=== PATIENT | female | born 1970 | race Caucasian/White ===

== ENCOUNTER → 2020-09-28 | Outpatient (REF) | payer BC | LOC: M SFHCCLAY 07:37 | PROVIDERS: ATTEND Nurse Practitioner Family | DX: Z53.9 Procedure and treatment not carried out, unspecified reason (principal); F32.9 Major depressive disorder, single episode, unspecified ==

== ENCOUNTER → 2021-03-20 | Outpatient (REF) | payer BC ==
[2021-03-20 12:04] LABS: BASO # 0.1 10^3/uL (0.0-0.2); BASO % 0.9 % (0.0-1.0); EOS # 0.1 10^3/uL (0.0-0.5); EOS % 1.7 % (0.0-3.0); HEMATOCRIT 42.2 % (36.0-47.0); HEMOGLOBIN 14.2 g/dl (12.0-15.5); LYMPH # 2.7 10^3/uL (1.5-5.0); LYMPH % 34.8 % (24.0-44.0); MEAN CORPUSCULAR HEMOGLOBIN 33.3 pg (27.0-33.0); MEAN CORPUSCULAR HGB CONC 33.6 g/dl (32.0-36.5); MEAN CORPUSCULAR VOLUME 98.8 fl (80.0-96.0); MONO # 0.4 10^3/uL (0.0-0.8); MONO % 4.9 % (2.0-8.0); NEUTROPHILS # 4.4 10^3/uL (1.5-8.5); NEUTROPHILS % 57.2 % (36.0-66.0); PLATELET COUNT, AUTOMATED 261 10^3/uL (150-450); RED BLOOD COUNT 4.27 10^6/uL (4.00-5.40); WHITE BLOOD COUNT 7.7 10^3/uL (4.0-10.0)
[2021-03-20 12:30] LABS: ERYTHROCYTE SEDIMENTATION RATE 26 mm/hr (0-30)
[2021-03-20 12:33] LABS: ALBUMIN 3.8 GM/DL (3.2-5.2); ALT/SGPT 128 U/L (12-78); BILIRUBIN,TOTAL 0.6 MG/DL (0.2-1.0); BLOOD UREA NITROGEN 9 MG/DL (7-18); CALCIUM LEVEL 9.6 MG/DL (8.5-10.1); CARBON DIOXIDE LEVEL 29 MEQ/L (21-32); CHLORIDE LEVEL 106 MEQ/L (98-107); CREATININE FOR GFR 0.83 MG/DL (0.55-1.30); GLOMERULAR FILTRATION RATE > 60.0 (>51); GLUCOSE, FASTING 200 MG/DL (70-100); POTASSIUM SERUM 4.8 MEQ/L (3.5-5.1); RHEUMATOID FACTOR QUANT < 10.0 IU/ML (<15.0); SODIUM LEVEL 141 MEQ/L (136-145); THYROID STIMULATING HORMONE 0.511 uIU/ML (0.358-3.740); TOTAL PROTEIN 6.9 GM/DL (6.4-8.2); VITAMIN B12 LEVEL 602 PG/ML
[2021-03-20 12:34] LABS: FOLATE 10.7 NG/ML
[2021-03-20 13:07] LABS: HEMOGLOBIN A1c 7.1 %
== END ==
LOC: M LABDRAWC 11:12
PROVIDERS: ATTEND Psychiatry & Neurology Neurology
DX: F09 Unspecified mental disorder due to known physiological condition (principal)

== ENCOUNTER 2021-04-07 10:03 | Emergency (ER) | payer BC, OTHER ==
[~2021-04-07] VITALS: Ht 167.6 cm; Wt 91.9 kg
[2021-04-07] MEDS ORDERED: PANTOPRAZOLE 40MG VIAL (C9113 PER 1) IV ONE (10:25)
[2021-04-07] MEDS ORDERED: GI COCKTAIL 50ML BTL(HYOSCYAMINE/MAALOX/LIDOCAINE VISCOUS)(1:3:1) PO ONE (10:25)
[2021-04-07] MEDS ORDERED: NS 1,000 ML IV ONE (11:00)
[2021-04-07 11:03] LABS: BASO % 0.8 % (0.0-1.0); EOS # 0.1 10^3/uL (0.0-0.5); EOS % 1.7 % (0.0-3.0); HEMATOCRIT 41.1 % (36.0-47.0); HEMOGLOBIN 14.7 g/dl (12.0-15.5); LYMPH # 1.7 10^3/uL (1.5-5.0); LYMPH % 32.1 % (24.0-44.0); MEAN CORPUSCULAR HGB CONC 35.8 g/dl (32.0-36.5); MEAN CORPUSCULAR VOLUME 95.1 fl (80.0-96.0); MONO # 0.3 10^3/uL (0.0-0.8); MONO % 6.4 % (2.0-8.0); NEUTROPHILS # 3.1 10^3/uL (1.5-8.5); NEUTROPHILS % 58.4 % (36.0-66.0); RED BLOOD COUNT 4.32 10^6/uL (4.00-5.40); WHITE BLOOD COUNT 5.3 10^3/uL (4.0-10.0)
--- NOTE | 2021-04-07 11:10 | REP ---
INDICATION: CHEST PAIN. COMPARISON: None. TECHNIQUE: AP view FINDINGS: The lungs are clear. The heart is not enlarged. There is no failure. The mediastinum and pleural surfaces are unremarkable. There is no evidence of pleural effusion. IMPRESSION: No active process. <Electronically signed by Salvatore Middleton > 04/07/21 1101
[2021-04-07 11:27] LABS: ALBUMIN 3.5 GM/DL (3.2-5.2); ALT/SGPT 194 U/L (12-78); BILIRUBIN,DIRECT 0.2 MG/DL (0.0-0.2); BILIRUBIN,TOTAL 1.3 MG/DL (0.2-1.0); BLOOD UREA NITROGEN 8 MG/DL (7-18); CALCIUM LEVEL 8.9 MG/DL (8.5-10.1); CARBON DIOXIDE LEVEL 24 MEQ/L (21-32); CHLORIDE LEVEL 107 MEQ/L (98-107); CREATININE FOR GFR 0.69 MG/DL (0.55-1.30); GLOMERULAR FILTRATION RATE > 60.0 (>51); GLUCOSE, FASTING 204 MG/DL (70-100); LIPASE 205 U/L (73-393); NT-PRO BNP 33 PG/ML (<125); SODIUM LEVEL 140 MEQ/L (136-145); TOTAL PROTEIN 6.8 GM/DL (6.4-8.2)
[2021-04-07] MEDS ORDERED: BUPR300T92 (11:28)
[2021-04-07] MEDS ORDERED: OMEP-221 (11:28)
[2021-04-07] MEDS ORDERED: CITA20TA7 (11:28)
[2021-04-07] MEDS ORDERED: METO1TAB87 (11:28)
[2021-04-07] MEDS ORDERED: METF10004 (11:28)
[2021-04-07] MEDS ORDERED: GLIP5TAB8 (11:28)
[2021-04-07] MEDS ORDERED: VALA500T5 (11:28)
[2021-04-07] MEDS ORDERED: TRUL0.5I (11:28)
[2021-04-07] MEDS ORDERED: LEVO125T4 (11:28)
--- NOTE | 2021-04-07 11:57 | REP ---
INDICATION: upper abd pain. COMPARISON: None. TECHNIQUE: Scans were obtained without contrast administration. FINDINGS: The lower lungs are clear. There is fatty infiltration of the liver and the liver is enlarged. There is no evidence of mass or biliary tract dilatation. The gallbladder has been surgically removed The pancreas shows normal size and attenuation. There is no evidence of mass or inflammatory change. The spleen shows normal size and attenuation. The adrenal glands are not enlarged. Right kidney is unremarkable. There are 2 subcentimeter lipomas in the left kidney PE left kidney is otherwise unremarkable. The large and small bowel are unremarkable. IMPRESSION: Two small lipomas in the left kidney. Fatty infiltration of the liver. <Electronically signed by Salvatore Middleton > 04/07/21 [id number]
--- NOTE | 2021-04-07 13:04 | ECGEPIP ---
[facility] - ED Test Date: 2021-04-07 Pat Name: IMELDA FORDE Department: Room: - Gender: Female Card Seller: JESSICA : 1970 Requested By: Gypsy Sweeney Order Number: [id number] Reading MD: Gus Delgado Measurements Intervals [place] Rate: 84 P: 45 [place]: 164 QRS: 48 QRSD: 74 T: 44 QT: 368 QTc: 434 Interpretive Statements Normal sinus rhythm Low voltage QRS POOR R WAVE PROGRESSION NO PRIORS FOR COMPARISON Electronically Signed on 04-07-2021 13:04:06 EDT by Gus Delgado
[2021-04-07] MEDS ORDERED: PROT1TAB2 PO (13:08)
[2021-04-07] MEDS ORDERED: CARA1TAB6 PO (13:09)
[2021-04-07 13:16] VITALS: BP 118/83
== END 2021-04-07 13:42 | disposition home or self-care (01) ==
LOC: M ED 10:03
DX: K29.70 Gastritis, unspecified, without bleeding (principal); R07.9 Chest pain, unspecified; R10.9 Unspecified abdominal pain; K76.0 Fatty (change of) liver, not elsewhere classified; D17.71 Benign lipomatous neoplasm of kidney; E11.9 Type 2 diabetes mellitus without complications; E78.5 Hyperlipidemia, unspecified; Z87.891 Personal history of nicotine dependence; Z91.041 Radiographic dye allergy status; Z91.030 Bee allergy status
CPT/HCPCS: 71045; 74176; 80047; 80048; 80076; 83690; 83880; 84484; 85025; 93005; 93041; 94760; 96361; 96374; 99285; C9113

== ENCOUNTER 2021-05-23 10:36 | Emergency (ER) | payer OTHER ==
[~2021-05-23 10:36] MED LIST: BUPR300T92; CARA1TAB6 PO; CITA20TA7; GLIP5TAB8; LEVO125T4; METF10004; METO1TAB87; OMEP-221; PROT1TAB2 PO; TRUL0.5I; VALA500T5
[2021-05-23] MEDS ORDERED: NS 1,000 ML IV ONE (13:00)
[2021-05-23] MEDS ORDERED: KETOROLAC 30 MG/ML 1ML VIAL IV ONE (14:10)
[2021-05-23 14:11] LABS: VENOUS BASE EXCESS 0.3 (-2.0-2.0); VENOUS HCO3 26.3 MEQ/L (23.0-27.0); VENOUS O2 SATURATION 75.9 % (60.0-80.0); VENOUS PARTIAL PRESSURE CO2 47.1 mmHg (38.0-50.0); VENOUS PARTIAL PRESSURE O2 41.7 mmHg (30.0-50.0); VENOUS PH 7.365 UNITS (7.330-7.430); VENOUS STANDARD HCO3 24.1 MEQ/L; VENOUS TOTAL CO2 27.8 MEQ/L (24.0-28.0)
[2021-05-23 14:14] LABS: BASO # 0.1 10^3/uL (0.0-0.2); BASO % 0.6 % (0.0-1.0); EOS # 0.1 10^3/uL (0.0-0.5); EOS % 1.4 % (0.0-3.0); HEMATOCRIT 47.7 % (36.0-47.0); HEMOGLOBIN 16.4 g/dl (12.0-15.5); LYMPH # 2.7 10^3/uL (1.5-5.0); LYMPH % 32.1 % (24.0-44.0); MEAN CORPUSCULAR HEMOGLOBIN 33.7 pg (27.0-33.0); MEAN CORPUSCULAR HGB CONC 34.4 g/dl (32.0-36.5); MEAN CORPUSCULAR VOLUME 98.1 fl (80.0-96.0); MONO # 0.5 10^3/uL (0.0-0.8); MONO % 5.4 % (2.0-8.0); NEUTROPHILS % 60.1 % (36.0-66.0); PLATELET COUNT, AUTOMATED 264 10^3/uL (150-450); RED BLOOD COUNT 4.86 10^6/uL (4.00-5.40); WHITE BLOOD COUNT 8.3 10^3/uL (4.0-10.0)
[2021-05-23 14:45] LABS: OSMOLALITY SERUM 288 MOSM/KG (275-295)
[2021-05-23 14:48] LABS: ACETONE/KETONE 4.03 MG/DL (<2.81); ALBUMIN 3.6 GM/DL (3.2-5.2); ALT/SGPT 267 U/L (12-78); BILIRUBIN,DIRECT 0.3 MG/DL (0.0-0.2); BILIRUBIN,TOTAL 1.2 MG/DL (0.2-1.0); CK-MB VALUE MASS < 1.0 NG/ML (<3.6); CPK CREATINE PHOSPHOKINASE 50 U/L (26-192); LIPASE 155 U/L (73-393); TROPONIN I < 0.02 NG/ML (< 0.10)
[2021-05-23 14:50] LABS: HEMOGLOBIN A1c 7.6 %
--- NOTE | 2021-05-23 15:08 | REP ---
INDICATION: Abdominal Pain. COMPARISON: Comparison chest x-ray is from April 07, 2021. TECHNIQUE: Two views.. FINDINGS: The lungs are well inflated and free of infiltrate. The pleural angles are sharp. The heart size is normal. Pulmonary vasculature is not increased. No significant bony abnormality is seen. A loop recorder is seen projecting in the left precordial soft tissues. IMPRESSION: Loop recorder visible. Otherwise negative chest x-ray. <Electronically signed by Babak Horton > 05/23/21 [id number]
[2021-05-23 15:31] LABS: RSV AMPLIFICATION NEGATIVE (NEGATIVE)
--- NOTE | 2021-05-23 16:04 | REP ---
INDICATION: L flank pain, urinary freq/urgency/hematuria. COMPARISON: 04/07/2021 also without contrast TECHNIQUE: Standard helical technique without intravenous or oral bowel preparatory contrast. Stone protocol utilized due to left flank pain. FINDINGS: The lung bases are clear and unchanged The liver, spleen, pancreas, adrenal glands, and kidneys are unchanged. There is no nephroureterolithiasis, hydronephrosis, or hydroureter. There are no urinary bladder calcifications. There is no significant change in appearance of the bowel loops or the mesenteries. There is no free fluid or free air. There is no evidence of a mass or adenopathy. 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 There is no significant change in appearance of the abdominal aorta or para-regions. There is no significant change in appearance of the imaged osseous structures. IMPRESSION: No significant change from 04/07/2021. There is fatty infiltration of the liver and tiny renal angiomyolipoma is. There is no evidence of acute disease. <Electronically signed by Tommy Marr > 05/23/21 1600
--- NOTE | 2021-05-23 16:17 | REP ---
INDICATION: abd pain, elevated lft's and bilirubin levels. COMPARISON: Comparison is made with CT study of the abdomen pelvis from earlier the same date. TECHNIQUE: Right upper quadrant sonography. FINDINGS: The gallbladder is surgically absent.. Common bile duct is normal measuring 4.8 cm in greatest diameter. No focal liver lesion is seen. The liver is hyperechoic diffusely consistent with fatty infiltration. Liver size is normal. No pancreatic abnormality is observed. No right renal abnormality is seen. There is no evidence of ascites. The right kidney measures 11.4 x 5.5 x 4.1 cm. IMPRESSION: Evidence of fatty infiltration of the liver. Otherwise negative right upper quadrant sonography. Post cholecystectomy. <Electronically signed by Babak Horton > 05/23/21 [id number]
--- NOTE | 2021-05-23 16:17 | REP ---
INDICATION: LLE>RLE, r/o dvt. COMPARISON: None. TECHNIQUE: Multiple ultrasonographic images of the deep venous structures of the left lower extremity were obtained from the inguinal ligament to the ankle. Venous compression techniques, color doppler imaging, and augmentation techniques were also obtained where appropriate. As per the ACR guidelines the anterior tibial vein can not be effectively evaluated. Only compression techniques in the calf on the peroneal and posterior tibial veins was attempted/performed. FINDINGS: There is no abnormal echogenic material seen within any of the visualized deep venous structures that would suggest acute thrombosis. Coaptation is unremarkable throughout. Doppler interrogation shows an expected response to respiratory variability and augmentation in the thigh. Compression techniques in the calf showed no abnormality. The color flow images show what appears to be a normal vascular pattern throughout the thigh. IMPRESSION: There is no ultrasonographic evidence of deep venous thrombosis involving any of the visualized deep venous structures of the left lower extremity as described above. <Electronically signed by Tommy Marr > 05/23/21 [id number]
[2021-05-23] MEDS ORDERED: methocarbamoL 500 MG TAB PO ONE (17:25)
[2021-05-23] MEDS ORDERED: LIDOCAINE 5% (LIDODERM) PATCH TD ONE (17:25)
[2021-05-23] MEDS ORDERED: LIDO5DIS41 TOP (17:53)
[2021-05-23] MEDS ORDERED: METH-1164 PO (17:54)
[2021-05-23 19:04] VITALS: BP 109/57
[2021-05-23] MEDS ORDERED: **NOTE PATIENT COMMENT** MISC XX SCH (21:00)
--- NOTE | 2021-05-24 07:45 | ECGEPIP ---
[facility] - ED Test Date: 2021-05-23 Pat Name: IMELDA FORDE Department: Room: - Gender: Female Psychiatry Adult Physician: JAREK : 1970 Requested By: ANTHONY Richey PA-C Order Number: [id number] Reading MD: Gypsy Sweeney Measurements Intervals [place] Rate: 84 P: 27 ME: 168 QRS: 36 QRSD: 74 T: 28 QT: 376 QTc: 444 Interpretive Statements Normal sinus rhythm low voltage limb similar 04/07/21 Electronically Signed on 05-24-2021 7:45:14 EDT by Gypsy Sweeney
== END 2021-05-23 19:15 | disposition home or self-care (01) ==
LOC: M ED 10:36
DX: R10.9 Unspecified abdominal pain (principal); M54.9 Dorsalgia, unspecified; K76.0 Fatty (change of) liver, not elsewhere classified; R94.5 Abnormal results of liver function studies; E66.9 Obesity, unspecified; R00.0 Tachycardia, unspecified; E11.9 Type 2 diabetes mellitus without complications; E78.5 Hyperlipidemia, unspecified; E03.9 Hypothyroidism, unspecified; F32.9 Major depressive disorder, single episode, unspecified; K21.9 Gastro-esophageal reflux disease without esophagitis; Z87.442 Personal history of urinary calculi; Z87.448 Personal history of other diseases of urinary system; Z87.891 Personal history of nicotine dependence; Z95.818 Presence of other cardiac implants and grafts
CPT/HCPCS: 36415; 71046; 74176; 76705; 80047; 80076; 81001; 82010; 82550; 82553; 82803; 83036; 83690; 83930; 84484; 85025; 85379; 87631; 93005; 93971; 96374; 99284; J1885

== ENCOUNTER → 2021-12-21 | Outpatient (REF) | payer OTHER ==
[~2021-12-21] MED LIST changes: +LIDO5DIS41 TOP; +METH-1164 PO; -OMEP-221; +OMEP40CA5
[2021-12-21 16:06] LABS: BASO # 0.1 10^3/uL (0.0-0.2); BASO % 0.8 % (0.0-1.0); EOS # 0.1 10^3/uL (0.0-0.5); EOS % 1.8 % (0.0-3.0); HEMATOCRIT 42.8 % (36.0-47.0); HEMOGLOBIN 14.9 g/dl (12.0-15.5); LYMPH % 32.4 % (24.0-44.0); MEAN CORPUSCULAR HEMOGLOBIN 33.2 pg (27.0-33.0); MEAN CORPUSCULAR HGB CONC 34.8 g/dl (32.0-36.5); MEAN CORPUSCULAR VOLUME 95.3 fl (80.0-96.0); MONO # 0.3 10^3/uL (0.0-0.8); MONO % 5.6 % (2.0-8.0); NEUTROPHILS # 3.6 10^3/uL (1.5-8.5); NEUTROPHILS % 58.7 % (36.0-66.0); PLATELET COUNT, AUTOMATED 208 10^3/uL (150-450); RED BLOOD COUNT 4.49 10^6/uL (4.00-5.40); WHITE BLOOD COUNT 6.1 10^3/uL (4.0-10.0)
[2021-12-21 16:11] LABS: ALT/SGPT 205 U/L (12-78); BLOOD UREA NITROGEN 10 MG/DL (7-18); CALCIUM LEVEL 9.1 MG/DL (8.5-10.1); CARBON DIOXIDE LEVEL 32 MEQ/L (21-32); CHLORIDE LEVEL 105 MEQ/L (98-107); CHOLESTEROL LEVEL 208 MG/DL (<200); CREATININE FOR GFR 0.72 MG/DL (0.55-1.30); GLOMERULAR FILTRATION RATE > 60.0 (>51); GLUCOSE, FASTING 187 MG/DL (70-100); HDL CHOLESTEROL 45 MG/DL (>40); NON-HDL-C 163 MG/DL; POTASSIUM SERUM 4.1 MEQ/L (3.5-5.1); SODIUM LEVEL 141 MEQ/L (136-145); TRIGLYCERIDES LEVEL 183 MG/DL (<150)
[2021-12-21 16:12] LABS: CHOLESTEROL RISK RATIO 4.622 (<5); LDL CHOLESTEROL 126 MG/DL (<100)
[2021-12-21 17:11] LABS: HEMOGLOBIN A1c 8.5 %
[2021-12-23 08:12] LABS: LDL DIRECT 136 mg/dL (0-99)
== END ==
LOC: M LABDRAWC 15:43
PROVIDERS: ATTEND Internal Medicine Cardiovascular Disease
DX: R07.9 Chest pain, unspecified (principal); E78.2 Mixed hyperlipidemia; E88.81 Metabolic syndrome and other insulin resistance; E11.9 Type 2 diabetes mellitus without complications

== ENCOUNTER → 2021-12-31 | Outpatient (REF) | payer BC ==
[2021-12-31 12:01] LABS: INR 0.99; PROTHROMBIN TIME 13.5 SECONDS (12.7-14.5)
[2021-12-31 12:02] LABS: PARTIAL THROMBOPLASTIN TIME 29.4 SECONDS (25.9-37.0)
[2021-12-31 12:26] LABS: ALT/SGPT 202 U/L (12-78); BILIRUBIN,DIRECT 0.3 MG/DL (0.0-0.2); BILIRUBIN,TOTAL 1.1 MG/DL (0.2-1.0); FERRITIN 694 NG/ML (8-252); IRON (FE) 112 UG/DL (50-170); PERCENT SATURATION 34.3 % (13.2-45.0); TOTAL IRON BINDING CAPACITY 327 UG/DL (250-450); TOTAL PROTEIN 6.9 GM/DL (6.4-8.2)
[2021-12-31 12:27] LABS: HEPATITIS B SURFACE ANTIBODY POSITIVE (POSITIVE)
[2021-12-31 12:37] LABS: HEPATITIS B SURFACE ANTIGEN NEGATIVE (NEGATIVE)
[2021-12-31 13:05] LABS: HEPATITIS C VIRUS ABY INDEX 0.2 INDEX (<0.8)
[2022-01-01 18:13] LABS: ALPHA 1 ANTITRYPSIN 160 mg/dL (101-187); ANTI-MITOCHONDRIAL ANTIBODY <20.0 Units (0.0-20.0); ANTINUCLEAR ANTIBODIES DIRECT Negative (Negative); CERULOPLASMIN 27.2 mg/dL (19.0-39.0); HEPATITIS A IgG TOTAL Negative (Negative); LIVER-KIDNEY MICROSOMAL ABY <20.1 Units (0.0-20.0); TISSUE TRANSGLUTAMINASE IgA <2 U/mL (0-3); TISSUE TRANSGLUTAMINASE IgG <2 U/mL (0-5)
== END ==
LOC: M LABDRAWC 11:17
PROVIDERS: ATTEND Physician Assistant
DX: R94.5 Abnormal results of liver function studies (principal)